=== PATIENT | male | born 1985 | race Caucasian/White ===

== ENCOUNTER 2017-08-03 13:57 | Emergency (ER) | payer MEDICAID ==
[2017-08-03 15:32] LABS: MONOTEST Negative (NEG)
== END 2017-08-03 15:57 | disposition home or self-care (01) ==
LOC: FTE 13:57
DX: J02.9 Acute pharyngitis, unspecified (principal)
CPT/HCPCS: 86308; 87880; 99283

== ENCOUNTER 2018-04-22 15:42 | Emergency (ER) | payer MEDICAID ==
[2018-04-22] MEDS: ONDANSETRON (ODT) 4 MG TAB ODT (18:44)
[2018-04-22] MEDS: HYDROCODONE/APAP (5/325) TAB PO (18:44)
== END 2018-04-22 19:03 | disposition home or self-care (01) ==
LOC: FTE 15:42
DX: G43.909 Migraine, unspecified, not intractable, without status migrainosus (principal); J32.9 Chronic sinusitis, unspecified
CPT/HCPCS: 99283; Z7502

== ENCOUNTER 2018-05-05 23:28 | Emergency (ER) | payer MEDICAID | END 2018-05-06 00:39 | disposition home or self-care (01) | LOC: FTE 23:28 | DX: J02.9 Acute pharyngitis, unspecified (principal); B34.9 Viral infection, unspecified; R06.02 Shortness of breath | CPT/HCPCS: 99282; Z7502 ==

== ENCOUNTER 2018-08-01 05:43 | Emergency (ER) | payer MEDICAID | END 2018-08-01 07:03 | disposition home or self-care (01) | LOC: FTE 07:03 | DX: J30.9 Allergic rhinitis, unspecified (principal) | CPT/HCPCS: 99283 ==